=== PATIENT | female | born 1990 | race African-American/Black ===

== ENCOUNTER 2018-03-17 12:30 | Emergency (ER) | payer SELFPAY ==
[2018-03-17 12:36] VITALS: BP 120/79
--- NOTE | 2018-03-17 12:52 | ED ---
Skin Complaint - HPI Summary HPI Summary: Patient states she was removing her false nail when the tip of the fingernail had ripped off. This occurred approximately 2-3 weeks ago. Since that time however she endorses pus intermittently draining with a bad fishy odor per patient. Denies any pain, erythema, warmth to the tip of the fingertip. Denies any numbness or tingling, color or temperature changes. She is otherwise healthy and takes no medications. - History of Current Complaint Chief Complaint: EDExtremityUpper Time Seen by Provider: 03/17/18 12:33 Stated Complaint: LT INDEX FINGER INJURY Hx Obtained From: Patient Onset/Duration: Started Hours Ago Skin Exposure Onset/Duration: Hours Ago Timing: Constant Onset Severity: Mild Current Severity: Mild Pain Intensity: 6 Pain Scale Used: 0-10 Numeric Aggravating Symptom(s): Nothing Alleviating Symptom(s): Nothing Associated Signs & Symptoms: Negative Related History: Trauma - Allergy/Home Medications Allergies/Adverse Reactions: Allergies Allergy/AdvReac Type Severity Reaction Status Date / Time No Known Drug Allergies Allergy Unknown Verified 03/17/18 12:37 Reaction Details PMH/Surg Hx/FS Hx/Imm Hx Previously Healthy: Yes - Immunization History Hx Pertussis Vaccination: No Immunizations Up to Date: Unable to Obtain/Confirm Infectious Disease History: No Infectious Disease History: Denies: Traveled Outside the [place] in Last 30 Days - Social History Occupation: Unemployed Lives: With Family Alcohol Use: None Hx Substance Use: No Substance Use Type: Reports: None Hx Tobacco Use: No Smoking Status (MU): Never Smoked Tobacco Review of Systems Constitutional: Negative Negative: Fever, Chills, Fatigue, Skin Diaphoresis Negative: Palpitations, Chest Pain Negative: Shortness Of Breath, Cough Genitourinary: Negative Positive: no symptoms reported, see HPI Negative: Arthralgia, Myalgia Positive: Other - serous drainage from underneath the R index nail Neurological: Negative All Other Systems Reviewed And Are Negative: Yes Physical Exam Triage Information Reviewed: Yes Vital Signs On Initial Exam: Initial Vitals Temp Pulse Resp BP Pulse Ox 97.1 F 65 18 120/79 100 03/17/18 12:33 03/17/18 12:33 03/17/18 12:33 03/17/18 12:33 03/17/18 12:33 Vital Signs Reviewed: Yes Appearance: Positive: Well-Appearing, Well-Nourished Skin: Positive: Warm, Skin Color Reflects Adequate Perfusion, Other - serous drainage from underneath the nail bed - does not appear to be purulent Head/Face: Positive: Normal Head/Face Inspection Eyes: Positive: EOMI, GORDY, Conjunctiva Clear Neck: Positive: Supple, No Lymphadenopathy Respiratory/Lung Sounds: Positive: Clear to Auscultation, Breath Sounds Present Cardiovascular: Positive: RRR, Pulses are Symmetrical in both Upper and Lower Extremities Musculoskeletal: Positive: Normal, Strength/ROM Intact Neurological: Positive: Speech Normal Psychiatric: Positive: Normal, Affect/Mood Appropriate AVPU Assessment: Alert Diagnostics - Vital Signs Vital Signs Temp Pulse Resp BP Pulse Ox 03/17/18 12:33 97.1 F 65 18 120/79 100 - Laboratory Lab Statement: Any lab studies that have been ordered have been reviewed, and results considered in the medical decision making process. Course/Dx - Course Course Of Treatment: On clinical evaluation there appears to be a ripped nail to right index finger with fluid draining from underneath the nail. The area does not appear to have purulent drainage, however patient states there was pus draining earlier this afternoon. She is given a very short course of Keflex to try to stave off any bacterial infection. - Diagnoses Provider Diagnoses: Infection, nail Discharge - Sign-Out/Discharge Documenting (check all that apply): Discharge/Admit/Transfer - Discharge Plan Condition: Stable Disposition: HOME Prescriptions: Cephalexin CAP* [Keflex CAP*] 250 mg PO BID #6 cap Additional Instructions: Soak the area frequently, but otherwise leave open to air Keflex twice daily x 3 days The area will slowly dry and heal - Billing Disposition and Condition Condition: STABLE Disposition: Home
== END 2018-03-17 12:50 | disposition home or self-care (01) ==
LOC: ED 12:30
DX: L03.011 Cellulitis of right finger (principal)
CPT/HCPCS: 99281

== ENCOUNTER 2019-02-16 22:04 | Emergency (ER) | payer OTHER ==
[2019-02-16] MEDS ORDERED: NS 0.9% 1000 ML** 1,000 ML IV ONE (22:15)
[2019-02-16 22:38] LABS: ABS Eosinophils 0.3 10^3/ul (0-0.6); ABS Lymphocytes 1.6 10^3/ul (1.0-4.8); ABS Monocytes 0.6 10^3/ul (0-0.8); ABS Neutrophils 2.9 10^3/ul (1.5-7.7); Hematocrit 34 % (35-47); Hemoglobin 10.9 g/dL (12.0-16.0); Lymphocyte % 29.8 %; Mean Corpuscular HGB Conc 33 g/dL (31-36); Mean Corpuscular Hemoglobin 28 pg (27-31); Mean Corpuscular Volume 86 fL (80-97); Mean Platelet Volume 9.7 fL (7.4-10.4); Nucleated Red Blood Cells % 0.1; Platelet Count 105 10^3/uL (150-450); Red Cell Distribution Width 18 % (10.5-15); White Blood Count 5.5 10^3/uL (3.5-10.8)
[2019-02-16 22:44] LABS: INR 1.1 (0.82-1.09)
[2019-02-16 22:56] LABS: ALT 10 U/L (7-52); AST 15 U/L (13-39); Albumin/Globulin Ratio 1.2 (1-3); Alkaline Phosphatase 36 U/L (34-104); Anion Gap 3 mmol/L (2-11); BUN/Creatinine Ratio 18.8 (8-20); Blood Urea Nitrogen 16 mg/dL (6-24); C Reactive Protein 4.78 mg/L (<8.01); CO2 Carbon Dioxide 27 mmol/L (22-32); Chloride 106 mmol/L (101-111); EGFR Non-African American 78.5 (>60); Globulin 3.4 g/dL (2-4); Glucose 93 mg/dL (70-100); Sodium 136 mmol/L (135-145); Total Protein 7.4 g/dL (6.4-8.9)
[2019-02-16 23:02] LABS: HCG Pregnancy < 0.60 mIU/mL
[2019-02-16 23:17] LABS: TSH (Thyroid Stimulating Horm) 2.71 mcIU/mL (0.34-5.60)
--- NOTE | 2019-02-17 00:07 | ED ---
Syncope/Near Syncope - HPI Summary HPI Summary: Patient brought by EMS for episode of syncope after getting out of the shower. Syncopal episode was witnessed by boyfriend, no seizure symptoms. Patient states history of same as she has chronic anemia. Symptoms more frequent during menstruation, patient states she is currently menstruating. Patient is alert and oriented, responding to history of present illness questions nonverbally. Patient is verbal at baseline, whispers that she can be nonverbal for up to 3 days after one of these syncopal episodes. Patient also also has history of bradycardia with baseline heart rate between 50 and 60. Patient has no history of seizure. Denies pain from fall, fever, cough, sore throat, CP , SOB, N/V/D, abdominal pain, change in urine, change in BM. Medical history is anemia. - History Of Current Complaint Chief Complaint: EDSyncope Time Seen by Provider: 02/16/19 22:12 Hx Obtained From: Patient Onset/Duration: Sudden Onset Timing: Intermittent Episode Lasting Context: Witnessed Associated Head Trauma: No Aggravating Factor(s): Nothing Alleviating Factor(s): Nothing Associated Signs And Symptoms: Negative - Allergies/Home Medications Allergies/Adverse Reactions: Allergies Allergy/AdvReac Type Severity Reaction Status Date / Time No Known Drug Allergies Allergy Unknown Verified 03/17/18 12:37 Reaction Details PMH/Surg Hx/FS Hx/Imm Hx Endocrine/Hematology History: Denies: Hx Anticoagulant Therapy Cardiovascular History: Denies: Hx Pacemaker/ICD History: Denies: Hx Dialysis Sensory History: Denies: Hx Legally Blind Opthamlomology History: Denies: Hx Eye Prosthesis EENT History: Denies: Hx Deafness Neurological History: Denies: Hx Dementia Psychiatric History: Denies: Hx Autism Infectious Disease History: No Infectious Disease History: Denies: Traveled Outside the [place] in Last 30 Days - Family History Known Family History: Positive: Non-Contributory - Social History Alcohol Use: None Hx Substance Use: No Substance Use Type: Reports: None Hx Tobacco Use: No Smoking Status (MU): Never Smoked Tobacco Review of Systems Constitutional: Negative Eyes: Negative ENT: Negative Cardiovascular: Negative Respiratory: Negative Gastrointestinal: Negative Genitourinary: Negative Musculoskeletal: Negative Skin: Negative Positive: Syncope Psychological: Normal All Other Systems Reviewed And Are Negative: Yes Physical Exam - Summary Physical Exam Summary: Patient alert and oriented. Initially nonverbal during history of present illness questioning, later verbal per baseline according to boyfriend.. Lung sounds clear to auscultation bilaterally. RRR. Abdomen soft nontender. No signs of trauma to mouth, face, head. Patient moving all 4 extremities freely. Triage Information Reviewed: Yes Vital Signs On Initial Exam: Initial Vitals Temp Pulse Resp BP Pulse Ox 98.6 F 55 16 122/78 96 02/16/19 22:07 02/16/19 22:07 02/16/19 22:07 02/16/19 22:07 02/16/19 22:07 Vital Signs Reviewed: Yes Appearance: Positive: Well-Appearing Skin: Positive: Warm Head/Face: Positive: Normal Head/Face Inspection Eyes: Positive: Normal Neck: Positive: Supple Respiratory/Lung Sounds: Positive: Clear to Auscultation Cardiovascular: Positive: Normal Abdomen Description: Positive: Nontender Musculoskeletal: Positive: Normal Neurological: Positive: Normal Psychiatric: Positive: Normal AVPU Assessment: Alert - Janine Coma Scale Best Eye Response: 4 - Spontaneous Best Motor Response: 6 - Obeys Commands Best Verbal Response: 5 - Oriented Coma Scale Total: 15 Diagnostics - Vital Signs Vital Signs Temp Pulse Resp BP Pulse Ox 02/16/19 22:07 98.6 F 55 16 122/78 96 - Laboratory Lab Results: Lab Results 02/16/19 02/16/19 02/16/19 Range/Units 22:29 22:29 22:29 WBC 5.5 (3.5-10.8) 10^3/uL RBC 3.90 (3.70-4.87) 10^6 /uL Hgb 10.9 L (12.0-16.0) g/dL Hct 34 L (35-47) % MCV 86 (80-97) fL MCH 28 (27-31) pg MCHC 33 (31-36) g/dL RDW 18 H (10.5-15) % Plt Count 105 L (150-450) 10^3/uL MPV 9.7 (7.4-10.4) fL Neut % (Auto) 53.5 % Lymph % (Auto) 29.8 % Blackford % (Auto) 11.1 % Eos % (Auto) 5.0 % Baso % (Auto) 0.6 % Absolute Neuts (auto) 2.9 (1.5-7.7) 10^3/ul Absolute Lymphs (auto) 1.6 (1.0-4.8) 10^3/ul Absolute Monos (auto) 0.6 (0-0.8) 10^3/ul Absolute Eos (auto) 0.3 (0-0.6) 10^3/ul Absolute Basos (auto) 0.0 (0-0.2) 10^3/ul Absolute Nucleated RBC 0.0 10^3/ul Nucleated RBC % 0.1 INR (Anticoag Therapy) 1.10 H (0.82-1.09) Sodium 136 (135-145) mmol/L Potassium 4.0 (3.5-5.0) mmol/L Chloride 106 (101-111) mmol/L Carbon Dioxide 27 (22-32) mmol/L Anion Gap 3 (2-11) mmol/L BUN 16 (6-24) mg/dL Creatinine 0.85 (0.51-0.95) mg/dL Est GFR ( Amer) 95.0 (>60) Est GFR (Non-Af Amer) 78.5 (>60) BUN/Creatinine Ratio 18.8 (8-20) Glucose 93 (70-100) mg/dL Lactic Acid (0.5-2.0) mmol/L Calcium 9.0 (8.6-10.3) mg/dL Total Bilirubin 0.30 (0.2-1.0) mg/dL AST 15 (13-39) U/L ALT 10 (7-52) U/L Alkaline Phosphatase 36 (34-104) U/L Troponin I 0.00 (<0.04) ng/mL C-Reactive Protein 4.78 (<8.01) mg/L Total Protein 7.4 (6.4-8.9) g/dL Albumin 4.0 (3.2-5.2) g/dL Globulin 3.4 (2-4) g/dL Albumin/Globulin Ratio 1.2 (1-3) TSH 2.71 (0.34-5.60) mcIU/mL Beta HCG, Quant < 0.60 mIU/mL 02/16/19 Range/Units 22:29 WBC (3.5-10.8) 10^3/uL RBC (3.70-4.87) 10^6 /uL Hgb (12.0-16.0) g/dL Hct (35-47) % MCV (80-97) fL MCH (27-31) pg MCHC (31-36) g/dL RDW (10.5-15) % Plt Count (150-450) 10^3/uL MPV (7.4-10.4) fL Neut % (Auto) % Lymph % (Auto) % Blackford % (Auto) % Eos % (Auto) % Baso % (Auto) % Absolute Neuts (auto) (1.5-7.7) 10^3/ul Absolute Lymphs (auto) (1.0-4.8) 10^3/ul Absolute Monos (auto) (0-0.8) 10^3/ul Absolute Eos (auto) (0-0.6) 10^3/ul Absolute Basos (auto) (0-0.2) 10^3/ul Absolute Nucleated RBC 10^3/ul Nucleated RBC % INR (Anticoag Therapy) (0.82-1.09) Sodium (135-145) mmol/L Potassium (3.5-5.0) mmol/L Chloride (101-111) mmol/L Carbon Dioxide (22-32) mmol/L Anion Gap (2-11) mmol/L BUN (6-24) mg/dL Creatinine (0.51-0.95) mg/dL Est GFR ( Amer) (>60) Est GFR (Non-Af Amer) (>60) BUN/Creatinine Ratio (8-20) Glucose (70-100) mg/dL Lactic Acid 0.5 (0.5-2.0) mmol/L Calcium (8.6-10.3) mg/dL Total Bilirubin (0.2-1.0) mg/dL AST (13-39) U/L ALT (7-52) U/L Alkaline Phosphatase (34-104) U/L Troponin I (<0.04) ng/mL C-Reactive Protein (<8.01) mg/L Total Protein (6.4-8.9) g/dL Albumin (3.2-5.2) g/dL Globulin (2-4) g/dL Albumin/Globulin Ratio (1-3) TSH (0.34-5.60) mcIU/mL Beta HCG, Quant mIU/mL Result Diagrams: 02/16/19 22:29 02/16/19 22:29 Lab Statement: Any lab studies that have been ordered have been reviewed, and results considered in the medical decision making process. Course/Dx Course Of Treatment: Patient brought by EMS for episode of syncope after getting out of the shower. Syncopal episode was witnessed by boyfriend, no seizure symptoms. Patient states history of same as she has chronic anemia. Symptoms more frequent during menstruation, patient states she is currently menstruating. Patient is alert and oriented, responding to history of present illness questions nonverbally. Patient is verbal at baseline, whispers that she can be nonverbal for up to 3 days after one of these syncopal episodes. Patient also also has history of bradycardia with baseline heart rate between 50 and 60. Patient has no history of seizure. Denies pain from fall, fever, cough, sore throat, CP, SOB, N/V/D, abdominal pain, change in urine, change in BM. Medical history is anemia. Physical exam:Patient alert and oriented. Initially nonverbal during history of present illness questioning, on reexam was verbal per baseline according to boyfriend.. Lung sounds clear to auscultation bilaterally. RRR. Abdomen soft nontender.No signs of trauma to mouth, face, head. Patient moving all 4 extremities freely. Heart rate in the 50s. Vital signs otherwise within normal limits. Labs unremarkable. EKG sinus bradycardia. Chest x-ray unremarkable. Patient states history of prior episodes of syncope due to chronic anemia. Has not been taking her iron recently. Currently menstruating. Will follow-up with primary care for evaluation of iron levels. - Diagnoses Provider Diagnoses: Syncope, Anemia Discharge - Sign-Out/Discharge Documenting (check all that apply): Patient Departure Patient Received Moderate/Deep Sedation with Procedure: No - Discharge Plan Condition: Stable Disposition: HOME Patient Education Materials: Syncope (ED) Referrals: Kwame Ivey DO [Primary Care Provider] - Additional Instructions: Follow-up with primary care for anemia. Return to the ED for any new or worsening symptoms. - Billing Disposition and Condition Condition: STABLE Disposition: Home
[2019-02-17 00:26] VITALS: BP 121/76
== END 2019-02-17 00:32 | disposition home or self-care (01) ==
LOC: ED 22:04
DX: R55 Syncope and collapse (principal); D64.9 Anemia, unspecified
CPT/HCPCS: 36415; 71046; 80053; 83605; 84443; 84484; 84702; 85025; 85610; 86140; 93005; 99283

== ENCOUNTER 2019-07-24 05:40 | Inpatient (IN) | payer OTHER ==
[~2019-07-24 05:40] MED LIST: Buffered Lidocaine 1% SYRIN* 1 ML/SYRINGE INTRADERM ONE
[2019-07-24] MEDS ORDERED: Lactated Ringers 1000 ML Bag* 1,000 ML IV SCH (06:00)
[2019-07-24] MEDS ORDERED: Famotidine IV* 10 MG/ML 2 ML (20 mg) IV ONE (06:00)
[2019-07-24] MEDS ORDERED: Buffered Lidocaine 1% SYRIN* 1 ML/SYRINGE INTRADERM ONE (06:14)
[2019-07-24] MEDS ORDERED: Famotidine IV* 10 MG/ML 2 ML (20 mg) ONE (06:14)
[2019-07-24] MEDS ORDERED: ceFAZolin 2 GM in NS PREMIX(*) 2 GM/100 ML BAG IVPB ONE (06:15)
[2019-07-24 07:09] LABS: ABS Eosinophils 0.4 10^3/ul (0-0.6); ABS Lymphocytes 1.6 10^3/ul (1.0-4.8); ABS Monocytes 0.7 10^3/ul (0-0.8); ABS Neutrophils 3.5 10^3/ul (1.5-7.7); Eosinophil % 6.3 %; Hematocrit 37 % (35-47); Hemoglobin 12.2 g/dL (12.0-16.0); Lymphocyte % 25.4 %; Mean Corpuscular HGB Conc 33 g/dL (31-36); Mean Corpuscular Hemoglobin 29 pg (27-31); Mean Corpuscular Volume 87 fL (80-97); Nucleated Red Blood Cells % 0.1; Platelet Count 118 10^3/uL (150-450); Red Blood Count 4.21 10^6 /uL (3.70-4.87); Red Cell Distribution Width 15 % (10-15); White Blood Count 6.2 10^3/uL (3.5-10.8)
[2019-07-24] MEDS ORDERED: Propofol* 10 MG/ML 20 ML BTL ONE (07:14)
[2019-07-24] MEDS ORDERED: Lidocaine 2% PF * 5 ML VIAL ONE (07:14)
[2019-07-24] MEDS ORDERED: Ketorolac INJ* 30 MG/ML 1 ML VIAL ONE (07:14)
[2019-07-24] MEDS ORDERED: Dexamethasone IV* 4 MG/ML 1 ML (4 MG) ONE (07:14)
[2019-07-24] MEDS ORDERED: Midazolam* 1 MG/ML 5 ML VIAL (5 MG) ONE (07:14)
[2019-07-24] MEDS ORDERED: Cisatracurium* 2 MG/ML MDV 5 ML ONE (07:14)
[2019-07-24] MEDS ORDERED: KETAMINE HCL* 50 MG/ML 10 ML VIAL ONE (07:14)
[2019-07-24] MEDS ORDERED: Ondansetron INJ* 2 MG/ML VIAL ONE (07:14)
[2019-07-24] MEDS ORDERED: fentaNYL* 50 MCG/ML 5 ML VIAL (250 MCG VIAL) ONE (07:14)
[2019-07-24] MEDS ORDERED: VASOPRESSIN 20 UNITS/ML 1 ML VIAL ONE (07:17)
[2019-07-24] MEDS ORDERED: Bupivacaine 0.5%* 50 ML MDV VIAL ONE (07:18)
[2019-07-24] MEDS ORDERED: ceFAZolin 1 GM ADVAN(*) 1 GM ADDV.VIAL IVPB ONE (07:33)
[2019-07-24] MEDS ORDERED: Midazolam* 1 MG/ML 2 ML VIAL (2 MG) ONE (07:39)
[2019-07-24] MEDS ORDERED: Naloxone* 0.4 MG/ML 1 ML VIAL IV PRN (08:19)
[2019-07-24] MEDS ORDERED: fentaNYL* 50 MCG/ML 2 ML VIAL (100 MCG VIAL) IV PRN (08:19)
[2019-07-24] MEDS ORDERED: Ondansetron INJ* 2 MG/ML VIAL IV PRN ×2 (08:19→09:38)
[2019-07-24] MEDS ORDERED: HYDROmorphone INJ1* 1 MG/ML SYRINGE IV PRN (08:19)
[2019-07-24] MEDS ORDERED: Methylene Blue 0.5 %* 50 MG/10 ML AMP IV ONE (08:26)
[2019-07-24] MEDS ORDERED: fentaNYL* 50 MCG/ML 2 ML VIAL (100 MCG VIAL) ONE ×2 (08:43→10:12)
[2019-07-24] MEDS ORDERED: Neostigmine Methylsulfate* 1 MG/ML 10 ML VIAL (1 mg/ml) ONE (09:00)
[2019-07-24] MEDS ORDERED: Glycopyrrolate IV* 0.2 MG/ML 1 ML VIAL ONE (09:00)
[2019-07-24] MEDS ORDERED: HYDROmorphone INJ1* 1 MG/ML SYRINGE ONE (09:11)
[2019-07-24] MEDS ORDERED: Naloxone* 0.4 MG/ML 1 ML VIAL IV PUSH PRN (09:41)
[2019-07-24] MEDS ORDERED: HYDROmorphone PCA* 20 MG/20 ML PCA.SYRING PCA SCH (10:00)
--- NOTE | 2019-07-24 10:29 | OP ---
DATE OF OPERATION: 07/24/2019. DATE OF : 1990. SURGEON: Dr. Yung Blakely. TABLEAU ANALYST: Dr. Ced Good. ANESTHESIA: General endotracheal tube. PRE-OP DIAGNOSIS: Leiomyomata uteri. POST-OP DIAGNOSIS: Adenomyosis and pelvic adhesions. OPERATIVE PROCEDURE: Laparotomy, lysis of adhesions, and hysterotomy. Biopsy of myometrium. ESTIMATED BLOOD LOSS: 150 cc. SPECIMEN: Question of a portion of fibroid, question fibroid. FINDINGS: On laparoscopy, the anterior bladder flap appeared normal in the cul de sac. On laparotom y, she had adhesions to the pelvic side wall and posteriorly. The bladder was quite scarred to the an terior peritoneum. The uterus was adenomyotic, large and soft with no discrete large 5 cm fibroid as described in the ultrasound. Both ovaries and tubes appeared normal. DESCRIPTION OF PROCEDURE: The patient was identified and the procedure identified as a laparotomy my omectomy. The patient was taken to the operating room, prepped and draped in the usual fashion in th e supine position under general anesthesia. A Pfannenstiel incision was made through the old incisio n, carried down through fat, fascia, and peritoneum. Upon entry into the abdominal cavity, some extr a fluid was obtained and there was quite a bit of dense scarring along the entry point. The scar was carefully dissected caudally and the peritoneum was gently dissected laterally. Adhesions to the an terior uterus were lysed. An Kannan retractor was placed and the bowel was packed cephalad. The robinson adrian was inspected and palpated. A small fibroid was noted in the fundal portion, but no discrete 5 cm fibroid and fibroid palpably was only 2 to 3 cm. A hysterotomy was made in the midline and the uter ine body was explored briefly with an attempt to get the small leiomyoma that was palpable. This was removed. Hemostasis was achieved with 0 Polysorb, figure of 8 sutures. The uterine hysterotomy sit e was closed using 0 Polysorb figure of 8 sutures. Good hemostasis was verified. The ovaries and fa llopian tubes were inspected. Good hemostasis is again verified. The bladder was filled up with 300 cc of Methylene blue. We had no blue dye found intraperitoneally or in the incision. Interceed was placed over the hysterotomy site. All packing and instruments were removed from the abdomen. The p eritoneum was then closed using 3- 0 Polysorb in a running fashion. Hemostasis in the subrectus laye rs. The fascia was closed using 0 Polysorb in a running fashion. Good hemostasis in the subcu. The space was closed using 3-0 Vicryl in a simple fashion. The skin was closed with 4-0 Monocryl in a subcuticular fashion. All sponge and instrument counts were correct and the patient returned to [facility] recovery room in stable condition. [id number]/[facility] #: [id number]
[2019-07-24] MEDS: Ferrous Sulfate TAB* 325 MG PO SCH (12:21)
[2019-07-24] MEDS: oxyCODONE/Acetamin 5/325 MG* TAB PO PRN ×2 (12:21→21:53)
--- NOTE | 2019-07-24 13:14 | PTEDU ---
Patient Name: EARLE ZHAO CECE EARLE selected video: Upper Endoscopy to view on 07/24/2019 at 1:13:50 PM from [id number]
[2019-07-24 17:35] LABS: Hematocrit 35 % (35-47); Hemoglobin 11.5 g/dL (12.0-16.0)
[2019-07-25] MEDS: Ferrous Sulfate TAB* 325 MG PO SCH (08:29)
[2019-07-25] MEDS: Ibuprofen TAB* 600 MG PO PRN ×2 (08:29→15:06)
[2019-07-25] MEDS: CITRATE OF MAGNESIA PO SCH (08:31)
[2019-07-25] MEDS ORDERED: oxyCODONE/Acetamin 5/325 MG* TAB PO PRN (10:17)
--- NOTE | 2019-07-25 14:49 | PN ---
Progress Note - Progress Note Date of Service: 07/25/19 SOAP: Subjective: Pt reports pain is well-controlled, no N/V. Lyubov PO, voiding. STATISTICAL SECRETARY discontinued this AM. Salvador removed. Pt has only ambulated a little bit so far. Objective: Vital Signs: Temp Pulse Resp BP Pulse Ox 97.5 F 79 16 128/68 100 07/25/19 11:11 07/25/19 11:11 07/25/19 12:00 07/25/19 11:11 07/25/19 12:00 Gen: NAD, comfortable Abd soft mild TTP, incision with clean bandage in place Laboratory Last Values WBC 6.2 10^3/uL (3.5-10.8) 07/24/19 06:53 RBC 4.21 10^6 /uL (3.70-4.87) 07/24/19 06:53 Hgb 11.5 g/dL (12.0-16.0) L 07/24/19 17:29 Hct 35 % (35-47) 07/24/19 17:29 MCV 87 fL (80-97) 07/24/19 06:53 MCH 29 pg (27-31) 07/24/19 06:53 MCHC 33 g/dL (31-36) 07/24/19 06:53 RDW 15 % (10-15) 07/24/19 06:53 Plt Count 118 10^3/uL (150-450) L 07/24/19 06:53 MPV 11.0 fL (7.4-10.4) H 07/24/19 06:53 Neut % (Auto) 57.4 % 07/24/19 06:53 Lymph % (Auto) 25.4 % 07/24/19 06:53 Clarke % (Auto) 10.6 % 07/24/19 06:53 Eos % (Auto) 6.3 % 07/24/19 06:53 Baso % (Auto) 0.3 % 07/24/19 06:53 Absolute Neuts (auto) 3.5 10^3/ul (1.5-7.7) 07/24/19 06:53 Absolute Lymphs (auto) 1.6 10^3/ul (1.0-4.8) 07/24/19 06:53 Absolute Monos (auto) 0.7 10^3/ul (0-0.8) 07/24/19 06:53 Absolute Eos (auto) 0.4 10^3/ul (0-0.6) 07/24/19 06:53 Absolute Basos (auto) 0.0 10^3/ul (0-0.2) 07/24/19 06:53 Absolute Nucleated RBC 0.0 10^3/ul 07/24/19 06:53 Nucleated RBC % 0.1 07/24/19 06:53 Blood Type A Positive 07/24/19 07:02 Antibody Screen Negative 07/24/19 06:53 Assessment: POD #1 doing well. Plan: Discussed pt's surgery briefly, but Dr. Blakely will discuss further. Pt to advance ambulation, shower tonight. Plan d/c tomorrow.
[2019-07-25] MEDS: oxyCODONE/Acetamin 5/325 MG* TAB PO PRN (17:32)
[2019-07-26] MEDS: oxyCODONE/Acetamin 5/325 MG* TAB PO PRN ×4 (01:55→20:03)
[2019-07-26] MEDS: CITRATE OF MAGNESIA PO SCH (08:11)
[2019-07-26] MEDS: Ferrous Sulfate TAB* 325 MG PO SCH (08:15)
--- NOTE | 2019-07-26 09:54 | PN ---
Progress Note - Progress Note Date of Service: 07/26/19 SOAP: Subjective: [pt doing ok. some pain . just took some percocet. + faltus/ + voiding/ starting to ambulate] Objective: [vss afebrile Abdomen soft mildly tender + bowel sounds incision clean and dry extremities. no tender] Assessment: [pod#2 s/p laparotomy doing well ] Plan: [ambulate anticipate home tomorrow]
[2019-07-26] MEDS ORDERED: Magnesium CITRATE* 300 ML BTL PO PRN (09:55)
[2019-07-26 10:49] LABS: ABS Eosinophils 0.2 10^3/ul (0-0.6); ABS Lymphocytes 1.7 10^3/ul (1.0-4.8); ABS Monocytes 0.7 10^3/ul (0-0.8); ABS Neutrophils 4.3 10^3/ul (1.5-7.7); Eosinophil % 3.6 %; Hematocrit 35 % (35-47); Hemoglobin 11.5 g/dL (12.0-16.0); Lymphocyte % 23.9 %; Mean Corpuscular HGB Conc 33 g/dL (31-36); Mean Corpuscular Hemoglobin 29 pg (27-31); Mean Corpuscular Volume 88 fL (80-97); Mean Platelet Volume 11.3 fL (7.4-10.4); Nucleated Red Blood Cells % 0.1; Platelet Count 112 10^3/uL (150-450); Red Blood Count 3.96 10^6 /uL (3.70-4.87); Red Cell Distribution Width 15 % (10-15)
[2019-07-27] MEDS: oxyCODONE/Acetamin 5/325 MG* TAB PO PRN (01:23)
[2019-07-27 07:13] VITALS: BP 109/47
[2019-07-27] MEDS: Ferrous Sulfate TAB* 325 MG PO SCH (07:54)
--- NOTE | 2019-07-31 12:28 | DS ---
CC: Dr. Kwame Ivey * DISCHARGE SUMMARY: DATE OF ADMISSION: 07/24/19 DATE OF DISCHARGE: 07/27/19 PRINCIPAL DIAGNOSIS: Adenomyosis. SECONDARY DIAGNOSES: 1. Menorrhagia. 2. Pelvic pain. COMPLICATIONS: None. DISPOSITION: The patient was discharged on ibuprofen 1 pill every 6 hours as needed. She is to follow up in 1 week for an incision check. PROCEDURE: Included a laparotomy, lysis of adhesions, hysterotomy, and biopsy of uterus. HISTORY: This is a 29-year-old with an ultrasound finding of a 6 cm intramyometrial fibroid, menorrhagia, and anemia. MEDICATIONS: Include: 1. Tranexamic acid. 2. Iron. 3. Vitamin D. 4. She takes multivitamin. ALLERGIES: She has no allergies. PAST SURGICAL HISTORY: Significant for previous and 8 pound 5 ounce low transverse and one induced in 2015. She had a myomectomy in September 2012. PHYSICAL EXAM: On admission showed blood pressure 132/78, weight was 313. HEENT: Within normal limits. Neck was supple. Chest is clear to auscultation. Cor: Regular rhythm. Abdomen: Soft, nontender. Extremities were nontender. Pelvic exam showed a bulky uterus. The patient was admitted and underwent a laparotomy on 07/24/19, at that time manual exploration of the uterus did not show a distinct large fibroid. Incision of the uterus did not again reveal any evidence of fibroid infiltration other than very small one, which was excised, by less than a cm in size, but no 5 cm fibroid was seen. Estimated blood loss was 150 cc. The patient did well on postoperatively, went home on postoperative day #3 without any complications. SIGNIFICANT LABORATORIES: Include a hemoglobin preop of 12.2, postop 11.5, platelet count of 112 on discharge. Significant other reports include a pathology specimen, which did show findings consistent with a leiomyoma approximately 1 to 2 cm in size. [id number]/[facility] #: [id number] [facility]
== END 2019-07-27 12:30 | disposition home or self-care (01) | DRG 519 ==
LOC: OR 05:40 → SSU 11:14
PROVIDERS: ADMIT Obstetrics & Gynecology; ATTEND Obstetrics & Gynecology
PROC: 0DNW0ZZ Release Peritoneum, Open Approach (ICD-10-PCS; 2019-07-24)
PROC: 0UT90ZZ Resection of Uterus, Open Approach (ICD-10-PCS; principal; 2019-07-24 07:30)
DX: D25.1 Intramural leiomyoma of uterus (principal); N92.0 Excessive and frequent menstruation with regular cycle; N80.0 Endometriosis of uterus; N73.6 Female pelvic peritoneal adhesions (postinfective); D64.9 Anemia, unspecified; Z79.899 Other long term (current) drug therapy; Z82.49 Family history of ischemic heart disease and other diseases of the circulatory system; Z80.52 Family history of malignant neoplasm of bladder
CPT/HCPCS: 36415; 81025; 85014; 85018; 85025; 86850; 86900; 86901; 88305; A9270-GY; J0690; J1100; J1170; J1885; J2250; J2405; J2704; J2710; J3010; J3490